=== PATIENT | male | born 1955 | race Caucasian/White ===

== ENCOUNTER → 2018-01-15 | Outpatient (CLI) | payer OTHER | END | disposition home or self-care (01) | LOC: ROC 01-10 10:54 | PROVIDERS: ATTEND Radiology Radiation Oncology | DX: C77.5 Secondary and unspecified malignant neoplasm of intrapelvic lymph nodes (principal); Z85.048 Personal history of other malignant neoplasm of rectum, rectosigmoid junction, and anus; Z88.2 Allergy status to sulfonamides | CPT/HCPCS: 99204; G0463 ==

== ENCOUNTER → 2018-09-10 | Outpatient (CLI) | payer MEDICARE | END | disposition home or self-care (01) | LOC: ROC 08:00 | PROVIDERS: ATTEND Radiology Radiation Oncology | DX: C77.5 Secondary and unspecified malignant neoplasm of intrapelvic lymph nodes (principal); Z85.048 Personal history of other malignant neoplasm of rectum, rectosigmoid junction, and anus | CPT/HCPCS: G0463 ==

== ENCOUNTER → 2019-03-11 | Outpatient (CLI) | payer MEDICARE | END | disposition home or self-care (01) | LOC: ROC 08:45 | PROVIDERS: ATTEND Radiology Radiation Oncology | DX: C77.5 Secondary and unspecified malignant neoplasm of intrapelvic lymph nodes (principal); Z85.048 Personal history of other malignant neoplasm of rectum, rectosigmoid junction, and anus; Z88.2 Allergy status to sulfonamides | CPT/HCPCS: G0463 ==

== ENCOUNTER 2019-09-02 08:33 | Outpatient (CLI) | payer MEDICARE | END 2019-09-02 23:59 | disposition home or self-care (01) | LOC: ROC 08:33 | PROVIDERS: ATTEND Radiology Radiation Oncology | DX: Z08 Encounter for follow-up examination after completed treatment for malignant neoplasm (principal); C77.5 Secondary and unspecified malignant neoplasm of intrapelvic lymph nodes; Z85.048 Personal history of other malignant neoplasm of rectum, rectosigmoid junction, and anus | CPT/HCPCS: G0463 ==